=== PATIENT | male | born 1950 | race Caucasian/White ===

== ENCOUNTER 2020-04-27 08:34 | Outpatient (CLI) | payer MEDICARE ==
--- NOTE | 2020-04-27 09:21 | RAD ---
EXAM: Abdomen one view: HISTORY: History of kidney stones COMPARISON: CT, 07/20/2017 FINDINGS: No evidence for large or small bowel obstruction. No free intraperitoneal air or extraluminal gas. Large 3.5 cm left renal calculus with several smaller bilateral renal calculi without overt ureteral calculus. IMPRESSION: Bilateral renal calculi with a 3.5 cm left renal calculus.
== END 2020-04-27 08:35 | disposition home or self-care (01) ==
LOC: BICRAD 08:34
PROVIDERS: ATTEND Urology
DX: N20.0 Calculus of kidney (principal)
CPT/HCPCS: 74018

== ENCOUNTER 2021-03-19 05:35 | Inpatient (IN) | payer MEDICARE ==
[2021-03-19] MEDS ORDERED: ceFAZolin 2 GM/DEX 5% 100 ML BAG ONE (06:12)
[2021-03-19] MEDS ORDERED: Thrombin 5000 UNITS/5 ML VIAL ONE (06:18)
[2021-03-19] MEDS ORDERED: EPINEPHrine 1 MG/ML AMP ONE (06:18)
[2021-03-19] MEDS ORDERED: Neomycin-Polymyxin 1 ML AMP ONE (06:18)
[2021-03-19] MEDS ORDERED: Bupivacaine PF 0.5% 30 ML VIAL ONE (06:18)
[2021-03-19] MEDS ORDERED: Fentanyl 250 MCG/5 ML VIAL ONE (06:31)
[2021-03-19] MEDS ORDERED: Vecuronium 10 MG VIAL ONE ×2 (06:31→07:08)
[2021-03-19] MEDS ORDERED: Midazolam HCl 2 mg/2 ml Vial ONE (06:51)
[2021-03-19] MEDS ORDERED: Albumin 5% 500 ML ONE (06:53)
[2021-03-19] MEDS ORDERED: PHENYLEPHRINE-NS 100 MCG/ML 10 ML SYRINGE ONE (07:08)
[2021-03-19] MEDS ORDERED: Ondansetron PF 4 MG/2 ML Vial ONE (07:08)
[2021-03-19] MEDS ORDERED: ePHEDrine 50 MG/ML VIAL ONE (07:08)
[2021-03-19] MEDS ORDERED: Lidocaine 1% PF 5 ML VIAL ONE (07:08)
[2021-03-19] MEDS ORDERED: Glycopyrrolate 0.2 MG/ML 5 ML SYRINGE ONE (07:08)
[2021-03-19] MEDS ORDERED: PROPOFOL 200 MG/20 ML VIAL ONE (07:08)
[2021-03-19] MEDS ORDERED: Dexamethasone 20 MG/5 ML VIAL ONE (07:08)
[2021-03-19] MEDS ORDERED: Rocuronium Bromide 10 MG/ML (10ML VIAL) ONE (07:08)
[2021-03-19] MEDS ORDERED: Phenylephrine 10 MG/ML VIAL ONE (08:00)
[2021-03-19] MEDS ORDERED: Fentanyl 100 MCG/2 ML VIAL ONE (13:10)
[2021-03-19] MEDS ORDERED: Promethazine 25 MG TAB PO PRN (13:26)
[2021-03-19] MEDS ORDERED: Acetaminophen 325 MG TAB PO PRN (13:26)
[2021-03-19] MEDS ORDERED: Morphine 2 MG/ML VIAL SLOW IVP PRN (13:26)
[2021-03-19] MEDS ORDERED: Bisacodyl 10 MG SUPP PR PRN (13:26)
[2021-03-19] MEDS ORDERED: diphenhydrAMINE 25 MG CAP PO PRN (13:26)
[2021-03-19] MEDS ORDERED: Milk Of Magnesia 30 ML UDCUP PO PRN (13:26)
[2021-03-19] MEDS ORDERED: Mag-Al 1200 mg/1200 mg/30 ML UDCUP PO PRN (13:26)
[2021-03-19] MEDS ORDERED: Ondansetron PF 4 MG/2 ML Vial IVP PRN (13:26)
[2021-03-19] MEDS ORDERED: HYDROmorphone 2 MG/ML VIAL ONE (13:45)
[2021-03-19] MEDS ORDERED: Promethazine HCl 25 MG/ML VIAL IM PRN (13:50)
[2021-03-19] MEDS ORDERED: Promethazine HCl 25 MG/ML VIAL IVPB PRN (13:50)
[2021-03-19] MEDS ORDERED: HYDROmorphone 2 MG/ML VIAL SLOW IVP PRN (13:50)
[2021-03-19] MEDS ORDERED: Ondansetron HCl/PF 4 MG/2 ML Vial IVP PRN (13:50)
[2021-03-19] MEDS ORDERED: PACU-Morphine 4MG/ML VIAL SLOW IVP PRN (13:50)
[2021-03-19] MEDS ORDERED: Morphine Sulfate 2 MG/ML SYRINGE SLOW IVP PRN (13:50)
[2021-03-19] MEDS ORDERED: Loratadine 10 MG TAB PO PRN (13:52)
[2021-03-19] MEDS ORDERED: ceFAZolin Sodium/D5W 2 GM in Premix Bag 1 BAG IVPB SCH (14:00)
[2021-03-19] MEDS: HYDROcodone/Acetaminophen 10/325 mg Tablet PO PRN ×2 (18:05→22:46)
[2021-03-19] MEDS: Sodium Chloride 0.9% 1,000 ML IV SCH (18:52)
[2021-03-19 18:54] VITALS: BMI 34.9
[2021-03-19] MEDS ORDERED: FLU VACC QS2021-22(65YR UP)/PF 240 MCG/0.7 ML SYRINGE IM ONE (20:30)
[2021-03-19] MEDS: Polyethylene Glycol OPTH DROP 15 ML BOT EA EYE SCH ×2 (20:32)
[2021-03-19] MEDS: ceFAZolin Sodium/D5W 2 GM in Premix Bag 1 BAG IVPB SCH (20:32)
[2021-03-19] MEDS: Atorvastatin Calcium 40 MG TAB PO SCH (22:46)
[2021-03-19] MEDS: Flecainide 50 MG TAB PO SCH (22:46)
[2021-03-20] MEDS: Sodium Chloride 0.9% 1,000 ML IV SCH ×2 (02:50→17:38)
[2021-03-20] MEDS: HYDROcodone/Acetaminophen 10/325 mg Tablet PO PRN ×2 (03:28→19:53)
[2021-03-20] MEDS: tiZANidine HCl 4 MG TAB PO PRN (03:30)
[2021-03-20] MEDS: ceFAZolin Sodium/D5W 2 GM in Premix Bag 1 BAG IVPB SCH (04:28)
[2021-03-20 07:15] LABS: Anion Gap 10 mmol/L (10-20); BUN (Urea Nitrogen) 20 mg/dL (8.4-25.7); Calc. Creatinine Clearance 108 mL/min (70-130); Carbon Dioxide 24 mmol/L (23-31); Chloride 106 mmol/L (98-107); Glucose 122 mg/dL (80-115); Potassium 4.4 mmol/L (3.5-5.1); Sodium 136 mmol/L (136-145)
[2021-03-20] MEDS: Amlodipine 5 MG TAB PO SCH (07:43)
[2021-03-20] MEDS: HYDROcodone/Acetaminophen 7.5/325 mg Tablet PO PRN ×2 (07:43→13:25)
[2021-03-20] MEDS: Multivit, Therapeutic 1 TAB PO SCH (07:45)
[2021-03-20] MEDS: Flecainide 50 MG TAB PO SCH ×2 (07:46→19:55)
[2021-03-20] MEDS: Polyethylene Glycol OPTH DROP 15 ML BOT EA EYE SCH ×5 (07:47→19:54)
[2021-03-20 09:36] LABS: Hemoglobin 7.4 g/dL (14.0-18.0); Mean Corpuscular HGB CONC 31.8 g/dL (32.0-36.0); Mean Corpuscular Hemoglobin 24.6 pg (27.0-31.0); Mean Corpuscular Volume 77.5 fL (78.0-98.0); Mean Platelet Volume 7.6 fL (7.4-10.4); Platelet Count 204 thou/uL (130-400); RBC Distribution Width 16.8 % (11.5-14.5); White Blood Cell (WBC) Count 8.2 thou/uL (4.8-10.8)
[2021-03-20 10:52] LABS: Band 7 % (5-11); Eosinophils 1 % (0-10); Hypochromia SLIGHT = 6-15 cells (100X) (0-5/hpf); Lymphocytes 13 % (21-51); MDiff Complete? YES; Microcytosis SLIGHT = 6-15 cells (100X) (0-5/hpf); Monocytes 14 % (0-10); Neutrophil 64 % (42-75); Platelet Morphology Comment Appears Adequate; Polychromasia SLIGHT = 2-3 cells (100X) (0-2/hpf)
[2021-03-20] MEDS: Acetaminophen/Codeine 30-300mg Tablet PO PRN ×3 (12:27→21:13)
[2021-03-20 13:47] LABS: Hemoglobin 7.8 g/dL (14.0-18.0)
[2021-03-20] MEDS: Ferrous Sulfate 325 MG TAB PO SCH (17:36)
[2021-03-20] MEDS: Atorvastatin Calcium 40 MG TAB PO SCH (19:53)
[2021-03-21] MEDS: HYDROcodone/Acetaminophen 10/325 mg Tablet PO PRN ×4 (02:34→19:01)
[2021-03-21 06:46] LABS: Hemoglobin 8.9 g/dL (14.0-18.0); Mean Corpuscular HGB CONC 32.1 g/dL (32.0-36.0); Mean Corpuscular Hemoglobin 26.2 pg (27.0-31.0); Mean Corpuscular Volume 81.4 fL (78.0-98.0); Mean Platelet Volume 7.7 fL (7.4-10.4); Platelet Count 143 thou/uL (130-400); Red Blood Cell (RBC) Count 3.38 mill/uL (4.70-6.10); White Blood Cell (WBC) Count 6.8 thou/uL (4.8-10.8)
[2021-03-21 06:51] LABS: Anion Gap 9 mmol/L (10-20); BUN (Urea Nitrogen) 19 mg/dL (8.4-25.7); Calc. Creatinine Clearance 120 mL/min (70-130); Calcium 7.7 mg/dL (7.8-10.44); Carbon Dioxide 25 mmol/L (23-31); Chloride 106 mmol/L (98-107); Glucose 107 mg/dL (80-115); Potassium 3.9 mmol/L (3.5-5.1); Sodium 136 mmol/L (136-145)
[2021-03-21] MEDS: tiZANidine HCl 4 MG TAB PO PRN ×2 (07:38→22:13)
[2021-03-21] MEDS: Amlodipine 5 MG TAB PO SCH (09:30)
[2021-03-21] MEDS: Multivit, Therapeutic 1 TAB PO SCH (09:30)
[2021-03-21] MEDS: Ferrous Sulfate 325 MG TAB PO SCH ×2 (09:30→18:58)
[2021-03-21] MEDS: Polyethylene Glycol OPTH DROP 15 ML BOT EA EYE SCH ×4 (09:32→22:02)
[2021-03-21 09:45] LABS: Band 14 % (5-11); Eosinophils 3 % (0-10); Lymphocytes 11 % (21-51); MDiff Complete? YES; Monocytes 12 % (0-10); Neutrophil 60 % (42-75); Ovalocytes SLIGHT = 2-5 cells (100X) (0-1/hpf); Platelet Morphology Comment Appears Adequate; Polychromasia SLIGHT = 2-3 cells (100X) (0-2/hpf)
[2021-03-21] MEDS: Flecainide 50 MG TAB PO SCH ×2 (10:36→22:02)
[2021-03-21] MEDS: Atorvastatin Calcium 40 MG TAB PO SCH (22:01)
[2021-03-22] MEDS: HYDROcodone/Acetaminophen 10/325 mg Tablet PO PRN ×5 (03:10→23:46)
[2021-03-22 05:57] LABS: Hemoglobin 8.4 g/dL (14.0-18.0); Platelet Count 159 thou/uL (130-400)
[2021-03-22] MEDS: Sulfameth/Trimethoprim DS 800-160mg TAB PO SCH ×2 (09:12→19:43)
[2021-03-22] MEDS: Amlodipine 5 MG TAB PO SCH (09:14)
[2021-03-22] MEDS: Multivit, Therapeutic 1 TAB PO SCH (09:14)
[2021-03-22] MEDS: Polyethylene Glycol OPTH DROP 15 ML BOT EA EYE SCH ×4 (09:15→23:27)
[2021-03-22] MEDS: Flecainide 50 MG TAB PO SCH ×2 (11:08→19:42)
[2021-03-22] MEDS: Ferrous Sulfate 325 MG TAB PO SCH ×2 (11:09→18:29)
[2021-03-22 15:38] VITALS: BP 104/63; TEMP 99.6
[2021-03-22] MEDS: Atorvastatin Calcium 40 MG TAB PO SCH (19:43)
== END 2021-03-22 23:50 | DRG 454 ==
LOC: SDC 05:35 → SURG B 13:26
PROVIDERS: ADMIT Neurological Surgery; ATTEND Internal Medicine
PROC: 0SG00AJ Fusion of Lumbar Vertebral Joint with Interbody Fusion Device, Posterior Approach, Anterior Column, Open Approach (ICD-10-PCS; principal; 2021-03-19)
PROC: 0SG0071 Fusion of Lumbar Vertebral Joint with Autologous Tissue Substitute, Posterior Approach, Posterior Column, Open Approach (ICD-10-PCS; 2021-03-19)
PROC: 01NB0ZZ Release Lumbar Nerve, Open Approach (ICD-10-PCS; 2021-03-19)
PROC: 0SB20ZZ Excision of Lumbar Vertebral Disc, Open Approach (ICD-10-PCS; 2021-03-19)
PROC: 00QT0ZZ Repair Spinal Meninges, Open Approach (ICD-10-PCS; 2021-03-19)
PROC: 30233N1 Transfusion of Nonautologous Red Blood Cells into Peripheral Vein, Percutaneous Approach (ICD-10-PCS; 2021-03-20)
DX: M48.062 Spinal stenosis, lumbar region with neurogenic claudication (principal); G83.4 Cauda equina syndrome; D62 Acute posthemorrhagic anemia; J96.10 Chronic respiratory failure, unspecified whether with hypoxia or hypercapnia; G89.29 Other chronic pain; M43.16 Spondylolisthesis, lumbar region; E78.5 Hyperlipidemia, unspecified; I48.91 Unspecified atrial fibrillation; I10 Essential (primary) hypertension; Z98.49 Cataract extraction status, unspecified eye; Z79.82 Long term (current) use of aspirin; Z79.899 Other long term (current) drug therapy
CPT/HCPCS: 36415; 36430; 76000; 80048; 85014; 85018; 85025; 85049; 86850; 86900; 86901; 87077; 87086; 87186; 90471; 90662; 93970; C1713; C1768; G0008; J0171; J1100; J1170; J2250; J2370; J2405; J2704; J3010; J3370; J3490; P9016; P9045; S0020

== ENCOUNTER 2021-04-10 11:19 | Outpatient (CLI) | payer MEDICARE | END 2021-04-10 11:20 | disposition home or self-care (01) | LOC: TBSIIMAG 11:19 | PROVIDERS: ATTEND Neurological Surgery | DX: M48.062 Spinal stenosis, lumbar region with neurogenic claudication (principal); M47.816 Spondylosis without myelopathy or radiculopathy, lumbar region; Z98.890 Other specified postprocedural states | CPT/HCPCS: 72100 ==

== ENCOUNTER 2021-10-27 22:57 | Inpatient (IN) | payer MEDICARE ==
[2021-10-27] MEDS ORDERED: Morphine 4 MG/ML VIAL ONE (23:40)
[2021-10-28] MEDS ORDERED: traMADol HCl 50 MG TAB PO PRN (00:49)
[2021-10-28] MEDS ORDERED: hydrALAZINE 20 MG/ML VIAL SLOW IVP PRN (00:49)
[2021-10-28] MEDS ORDERED: Lorazepam 2 MG/ML VIAL SLOW IVP PRN (00:49)
[2021-10-28] MEDS ORDERED: Promethazine HCl 25 MG/ML VIAL IM PRN (00:49)
[2021-10-28] MEDS ORDERED: Ondansetron PF 4 MG/2 ML Vial IVP PRN (00:49)
[2021-10-28] MEDS: Morphine 2 MG/ML VIAL SLOW IVP PRN ×4 (02:10→12:23)
[2021-10-28] MEDS: Sodium Chloride 0.9% 1,000 ML IV SCH ×3 (02:10→18:11)
[2021-10-28] MEDS: traMADol HCl 50 MG TAB PO PRN ×2 (02:10→08:12)
[2021-10-28 03:05] VITALS: BMI 35.7
[2021-10-28] MEDS: Acetaminophen 325 MG TAB PO PRN ×2 (03:25→08:12)
[2021-10-28 07:07] LABS: Hemoglobin 10.5 g/dL (14.0-18.0); Mean Corpuscular HGB CONC 32.4 g/dL (32.0-36.0); Mean Corpuscular Hemoglobin 27.1 pg (27.0-31.0); Mean Corpuscular Volume 83.7 fL (78.0-98.0); Mean Platelet Volume 7.9 fL (7.4-10.4); Platelet Count 193 thou/uL (130-400); RBC Distribution Width 19.5 % (11.5-14.5); Red Blood Cell (RBC) Count 3.89 mill/uL (4.70-6.10); White Blood Cell (WBC) Count 5.8 thou/uL (4.8-10.8)
[2021-10-28 07:21] LABS: Prothrombin Time 13.6 sec (12.0-14.7)
[2021-10-28 07:22] LABS: PTT 35.2 sec (22.9-36.1)
[2021-10-28 07:25] LABS: SARS-CoV-2 NAA Rapid Test Not Detected (NotDetected)
[2021-10-28 07:37] LABS: Anion Gap 12 mmol/L (10-20); BUN (Urea Nitrogen) 20 mg/dL (8.4-25.7); Calc. Creatinine Clearance 105 mL/min (70-130); Calcium 8.6 mg/dL (7.8-10.44); Carbon Dioxide 24 mmol/L (23-31); Chloride 103 mmol/L (98-107); Glucose 104 mg/dL (80-115); Phosphorus 2.9 mg/dL (2.3-4.7); Sodium 135 mmol/L (136-145)
[2021-10-28] MEDS: Flecainide 50 MG TAB PO SCH ×2 (08:23→20:15)
[2021-10-28] MEDS: Famotidine/PF 20 mg/2ml Vial SLOW IVP SCH ×2 (08:24→20:15)
[2021-10-28 08:29] LABS: Anisocytosis SLIGHT = 6-15 cells (100X) (0-5/hpf); Band 4 % (5-11); Lymphocytes 8 % (21-51); MDiff Complete? YES; Monocytes 19 % (0-10); Neutrophil 69 % (42-75); Ovalocytes SLIGHT = 2-5 cells (100X) (0-1/hpf); Platelet Morphology Comment Appears Adequate; Polychromasia SLIGHT = 2-3 cells (100X) (0-2/hpf)
[2021-10-28] MEDS ORDERED: ceFAZolin (BATCH) 2 GM in Premix Bag 1 BAG IVPB SCH (09:00)
[2021-10-28] MEDS ORDERED: Non-Formulary Item 1 EACH (Flecainide Acetate [Flecainide Acetate] 100 MG Tablet) PO SCH (09:00)
[2021-10-28] MEDS ORDERED: Non-Formulary Item 1 EACH (Mirabegron [Myrbetriq] 50 MG Tab.Er.24h) PO SCH (09:00)
[2021-10-28] MEDS ORDERED: Metoprolol Tartrate 25 MG TAB PO SCH (09:00)
[2021-10-28] MEDS ORDERED: traMADol HCl 50 MG TAB PO SCH (12:15)
[2021-10-28] MEDS: Acetaminophen 500 MG TAB PO SCH ×2 (12:19→18:11)
[2021-10-28] MEDS: Ibuprofen 200 MG TAB PO SCH ×2 (12:20→20:15)
[2021-10-28] MEDS: traMADol HCl 50 MG TAB PO SCH ×2 (12:22→18:12)
[2021-10-28] MEDS ORDERED: Fentanyl 250 MCG/5 ML VIAL ONE (13:34)
[2021-10-28] MEDS ORDERED: ceFAZolin (BATCH) 2 GM/100 ML BAG ONE (14:13)
[2021-10-28] MEDS ORDERED: PHENYLEPHRINE-NS 100 MCG/ML 10 ML SYRINGE ONE (14:18)
[2021-10-28] MEDS ORDERED: Lidocaine 1% PF 5 ML VIAL ONE (14:18)
[2021-10-28] MEDS ORDERED: PROPOFOL 200 MG/20 ML VIAL ONE (14:18)
[2021-10-28] MEDS ORDERED: ePHEDrine 50 MG/ML VIAL ONE (14:18)
[2021-10-28] MEDS ORDERED: Rocuronium Bromide 10 MG/ML (10ML VIAL) ONE (14:18)
[2021-10-28] MEDS ORDERED: Glycopyrrolate 0.2 MG/ML 5 ML SYRINGE ONE (14:18)
[2021-10-28] MEDS: Aspirin 81 mg Enteric Coated Tablet PO SCH (20:15)
[2021-10-28] MEDS: Atorvastatin Calcium 40 MG TAB PO SCH (20:15)
[2021-10-28] MEDS: Metoprolol Tartrate 25 MG TAB PO SCH (20:16)
[2021-10-28] MEDS: ceFAZolin (BATCH) 2 GM in Premix Bag 1 BAG IVPB SCH (22:07)
[2021-10-28] MEDS: Oxazepam 10 MG CAP PO SCH (22:07)
[2021-10-29] MEDS: traMADol HCl 50 MG TAB PO SCH ×4 (00:40→17:29)
[2021-10-29] MEDS: Acetaminophen 500 MG TAB PO SCH ×4 (00:41→17:28)
[2021-10-29] MEDS: Sodium Chloride 0.9% 1,000 ML IV SCH (02:14)
[2021-10-29] MEDS: Ibuprofen 200 MG TAB PO SCH ×3 (04:40→21:13)
[2021-10-29] MEDS: ceFAZolin (BATCH) 2 GM in Premix Bag 1 BAG IVPB SCH ×2 (05:25→15:20)
[2021-10-29] MEDS: Oxazepam 10 MG CAP PO SCH ×3 (05:26→21:24)
[2021-10-29 06:59] LABS: #Lymphocytes 0.2 thou/uL (1.20-3.40); #Monocytes 0.4 thou/uL (0.11-0.59); #Neutrophils 6.4 thou/uL (1.40-6.50); %Basophils 0.3 % (0.0-1.0); %Eosinophils 0.1 % (0.0-10.0); %Lymphocytes 2.9 % (21.0-51.0); %Monocytes 5.3 % (0.0-10.0); %Neutrophils 91.3 % (42.0-75.0); Hemoglobin 9.4 g/dL (14.0-18.0); Mean Corpuscular HGB CONC 30.9 g/dL (32.0-36.0); Mean Corpuscular Hemoglobin 26.7 pg (27.0-31.0); Mean Corpuscular Volume 86.3 fL (78.0-98.0); Mean Platelet Volume 7.4 fL (7.4-10.4); Platelet Count 169 thou/uL (130-400); Red Blood Cell (RBC) Count 3.51 mill/uL (4.70-6.10)
[2021-10-29] MEDS: Hydrochlorothiazide 25 MG TAB PO SCH (09:07)
[2021-10-29] MEDS: Folic Acid 1 MG TAB PO SCH (09:07)
[2021-10-29] MEDS: Thiamine 100 MG TAB PO SCH (09:07)
[2021-10-29] MEDS: Aspirin 81 mg Enteric Coated Tablet PO SCH ×2 (09:08→21:14)
[2021-10-29] MEDS: Losartan 25 MG TAB PO SCH (09:08)
[2021-10-29] MEDS: Metoprolol Tartrate 25 MG TAB PO SCH ×2 (09:08→21:17)
[2021-10-29] MEDS: Flecainide 50 MG TAB PO SCH ×2 (09:08→21:14)
[2021-10-29] MEDS: Ascorbic Acid 500 mg Chewable Tablet PO SCH (09:08)
[2021-10-29] MEDS: Ferrous Sulfate 325 MG TAB PO SCH (09:08)
[2021-10-29 09:17] LABS: MDiff Complete? YES; Platelet Morphology Comment Appears Adequate; Polychromasia SLIGHT = 2-3 cells (100X) (0-2/hpf)
[2021-10-29] MEDS: Famotidine/PF 20 mg/2ml Vial SLOW IVP SCH (09:17)
[2021-10-29] MEDS: Famotidine 20 MG TAB PO SCH (21:14)
[2021-10-29] MEDS: Atorvastatin Calcium 40 MG TAB PO SCH (21:15)
[2021-10-29] MEDS: CEFAZOLIN 2 GM in Sodium Chloride 0.9% 100 ML IVPB SCH (21:22)
[2021-10-30] MEDS: Acetaminophen 500 MG TAB PO SCH ×3 (00:02→11:50)
[2021-10-30] MEDS: traMADol HCl 50 MG TAB PO SCH ×3 (00:02→11:50)
[2021-10-30] MEDS: Ibuprofen 200 MG TAB PO SCH ×2 (04:18→11:51)
[2021-10-30] MEDS: CEFAZOLIN 2 GM in Sodium Chloride 0.9% 100 ML IVPB SCH (05:43)
[2021-10-30] MEDS: Oxazepam 10 MG CAP PO SCH (05:46)
[2021-10-30 06:19] LABS: Hemoglobin 7.9 g/dL (14.0-18.0); Mean Corpuscular HGB CONC 30.2 g/dL (32.0-36.0); Mean Corpuscular Hemoglobin 26.1 pg (27.0-31.0); Mean Corpuscular Volume 86.3 fL (78.0-98.0); Mean Platelet Volume 7.1 fL (7.4-10.4); Platelet Count 144 thou/uL (130-400); RBC Distribution Width 19.4 % (11.5-14.5); Red Blood Cell (RBC) Count 3.04 mill/uL (4.70-6.10)
[2021-10-30 06:20] LABS: Band 6 % (5-11); Eosinophils 1 % (0-10); Hypochromia SLIGHT = 6-15 cells (100X) (0-5/hpf); Lymphocytes 8 % (21-51); MDiff Complete? YES; Monocytes 19 % (0-10); Neutrophil 66 % (42-75); Platelet Morphology Comment Appears Adequate
[2021-10-30] MEDS: Famotidine 20 MG TAB PO SCH (09:11)
[2021-10-30] MEDS: Ferrous Sulfate 325 MG TAB PO SCH (09:11)
[2021-10-30] MEDS: Ascorbic Acid 500 mg Chewable Tablet PO SCH (09:11)
[2021-10-30] MEDS: Thiamine 100 MG TAB PO SCH (09:11)
[2021-10-30] MEDS: Hydrochlorothiazide 25 MG TAB PO SCH (09:11)
[2021-10-30] MEDS: Losartan 25 MG TAB PO SCH (09:11)
[2021-10-30] MEDS: Metoprolol Tartrate 25 MG TAB PO SCH (09:11)
[2021-10-30] MEDS: Aspirin 81 mg Enteric Coated Tablet PO SCH (09:11)
[2021-10-30] MEDS: Flecainide 50 MG TAB PO SCH (09:11)
[2021-10-30] MEDS: Folic Acid 1 MG TAB PO SCH (09:11)
[2021-10-30 11:53] VITALS: BP 128/76; TEMP 98.1
== END 2021-10-30 13:40 | disposition home health service (06) | DRG 522 ==
LOC: ERS 22:57 → SJJU 10-28 00:49
PROVIDERS: ADMIT Specialist; ATTEND Surgery
PROC: 0SRR0JZ Replacement of Right Hip Joint, Femoral Surface with Synthetic Substitute, Open Approach (ICD-10-PCS; principal; 2021-10-28)
DX: S72.001A Fracture of unspecified part of neck of right femur, initial encounter for closed fracture (principal); W18.30XA Fall on same level, unspecified, initial encounter; Z20.822 Contact with and (suspected) exposure to COVID-19; I48.91 Unspecified atrial fibrillation; K21.9 Gastro-esophageal reflux disease without esophagitis; E78.5 Hyperlipidemia, unspecified; I10 Essential (primary) hypertension; Z95.0 Presence of cardiac pacemaker; Z79.82 Long term (current) use of aspirin; Z79.899 Other long term (current) drug therapy
CPT/HCPCS: 36415; 72170; 80048; 83735; 84100; 85025; 85610; 85730; 96374; C1713; J0690; J2270; J2704; J3010; J3490; J7050; S0028; U0002

== ENCOUNTER 2021-12-26 11:44 | Outpatient (CLI) | payer MEDICARE ==
[2021-03-14 12:44] LABS: Hemoglobin 10.4 g/dL (13.5-17.5); Mean Corpuscular HGB CONC 29.6 g/dL (32.0-36.0); Mean Corpuscular Hemoglobin 23.2 pg (27.0-33.0); Mean Corpuscular Volume 78.2 fl (81.2-95.1); Mean Platelet Volume 9.4 fl (7.4-10.4); Platelet Count 264 10x3/uL (150-450); RBC Distribution Width 18.2 % (11.5-14.5); Red Blood Cell (RBC) Count 4.49 10x6/uL (4.32-5.72); White Blood Cell (WBC) Count 6.2 10x3/uL (3.5-10.5)
[2021-03-14 13:14] LABS: Prothrombin Time 10.6 sec (9.5-12.1)
[2021-03-14 13:49] LABS: Anion Gap 13 mmol/L (10-20); BUN (Urea Nitrogen) 21 mg/dL (8.4-25.7); Calc. Creatinine Clearance 0 mL/min (70-130); Calcium 9.7 mg/dL (7.8-10.44); Carbon Dioxide 24 mmol/L (23-31); Chloride 107 mmol/L (98-107); Glucose 87 mg/dL (80-115); Potassium 4.3 mmol/L (3.5-5.1); Sodium 140 mmol/L (136-145)
[2021-12-26 12:50] LABS: Bilirubin Neg (Negative); Blood, Urine 50 (Negative); Clarity Cloudy (Clear); Glucose, Urine (Dipstick) Normal (Negative); Ketone, Urine Negative (Negative); Leukocyte 500 (Negative); Nitrite Negative (Negative); Protein, Urine (Dipstick) 15 mg/dl (Neg-Trace); Specific Gravity, Urine 1.015 (1.002-1.036); Urobilinogen Normal mg/dL (Less than 2)
[2021-12-26 12:51] LABS: Hemoglobin 12.2 g/dL (13.5-17.5); Mean Corpuscular HGB CONC 31.7 g/dL (32.0-36.0); Mean Corpuscular Hemoglobin 27.8 pg (27.0-33.0); Mean Corpuscular Volume 87.7 fl (81.2-95.1); Mean Platelet Volume 9.2 fl (7.4-10.4); Platelet Count 169 10x3/uL (150-450); RBC Distribution Width 15.3 % (11.5-14.5); Red Blood Cell (RBC) Count 4.39 10x6/uL (4.32-5.72); White Blood Cell (WBC) Count 4.6 10x3/uL (3.5-10.5)
[2021-12-26 13:11] LABS: Anion Gap 14 mmol/L (10-20); BUN (Urea Nitrogen) 27 mg/dL (8.4-25.7); Calc. Creatinine Clearance 0 mL/min (70-130); Carbon Dioxide 26 mmol/L (23-31); Chloride 101 mmol/L (98-107); Estimated GFR 91; Glucose 89 mg/dL (80-115); Potassium 4.1 mmol/L (3.5-5.1); Sodium 137 mmol/L (136-145)
[2021-12-26 13:14] LABS: WBC/HPF Greater than 50 HPF (0-3)
[2021-12-26 13:15] LABS: Bacteria/HPF 4+ HPF (None Seen); Squamous Epithelial 0-3 HPF (0-3)
[2021-12-26 13:17] LABS: Mucous/LPF Rare LPF (<2+)
== END 2021-12-26 11:45 ==
LOC: LABBT 11:44
PROVIDERS: ATTEND Urology
DX: Z01.818 Encounter for other preprocedural examination (principal); N40.0 Benign prostatic hyperplasia without lower urinary tract symptoms; Z20.822 Contact with and (suspected) exposure to COVID-19
CPT/HCPCS: 80048; 85027; 85610; 85730; U0003; U0005; 81001; 87086; 87811; 93005; 93010

== ENCOUNTER 2021-12-31 07:04 | Day surgery (SDC) | payer MEDICARE ==
[2021-12-27 11:26] VITALS: BMI 35.2
[2021-12-31] MEDS ORDERED: SUGAMMADEX SODIUM 200 MG/2 ML VIAL ONE (08:42)
[2021-12-31] MEDS ORDERED: Fentanyl 100 MCG/2 ML VIAL ONE (08:42)
[2021-12-31] MEDS ORDERED: Sodium Chloride 0.9% 100 ML ONE (08:47)
[2021-12-31] MEDS ORDERED: cefTRIAXone\\ROCEPHIN 2 GM VIAL ONE (08:47)
[2021-12-31] MEDS ORDERED: Dexamethasone 20 MG/5 ML VIAL ONE (08:55)
[2021-12-31] MEDS ORDERED: ePHEDrine 50 MG/ML VIAL ONE (08:55)
[2021-12-31] MEDS ORDERED: Lidocaine 1% PF 5 ML VIAL ONE (08:55)
[2021-12-31] MEDS ORDERED: PROPOFOL 200 MG/20 ML VIAL ONE (08:55)
[2021-12-31] MEDS ORDERED: Glycopyrrolate 0.2 MG/ML 5 ML SYRINGE ONE (08:55)
[2021-12-31] MEDS ORDERED: Ondansetron PF 4 MG/2 ML Vial ONE (08:55)
[2021-12-31] MEDS ORDERED: Phenazopyridine HCl 100 MG TAB ONE (10:11)
[2021-12-31] MEDS ORDERED: Ketorolac Tromethamine 30 MG/ML VIAL ONE (10:11)
[2021-12-31] MEDS ORDERED: Oxybutynin 5 MG TAB ONE (10:12)
== END 2021-12-31 12:00 | disposition home or self-care (01) ==
LOC: SDC 07:04
PROVIDERS: ATTEND Urology
PROC: 0VT08ZZ Resection of Prostate, Via Natural or Artificial Opening Endoscopic (ICD-10-PCS; principal; 2021-12-31)
DX: N40.1 Benign prostatic hyperplasia with lower urinary tract symptoms (principal); R39.14 Feeling of incomplete bladder emptying; N32.89 Other specified disorders of bladder; N13.8 Other obstructive and reflux uropathy; I10 Essential (primary) hypertension; F17.290 Nicotine dependence, other tobacco product, uncomplicated; Z79.82 Long term (current) use of aspirin; Z79.899 Other long term (current) drug therapy; Z88.8 Allergy status to other drugs, medicaments and biological substances
CPT/HCPCS: 88305; J0696; J1100; J1885; J2405; J2704; J2710; J3010; J3490